=== PATIENT | female | born 1975 | race Caucasian/White ===

== ENCOUNTER 2016-08-03 11:23 | Emergency (ER) | payer BC ==
[2016-08-03] MEDS ORDERED: IBUPROFEN 800 MG TABLET ONE (12:23)
[2016-08-03 12:35] LABS: BASO % 0.5 % (0.2-1.0); EOS # 0.1 (0.0-0.5); EOS % 1.1 % (0.9-2.9); HEMATOCRIT 37.6 % (37.0-47.0); HEMOGLOBIN 12.7 gm/l (12.0-16.0); IMM NEUT% 0.3 % (0-1); LYMPH % 30.4 % (15-45); MEAN CELL VOLUME 90.6 fl (81.0-99.0); MEAN CORPUSCULAR HEMOGLOBIN 30.6 pg (27.0-31.0); MEAN CORPUSCULAR HGB CONC 33.8 g/dl (33.0-37.0); MEAN PLATELET VOLUME 10.6 fl (7.4-10.4); MONO # 0.4 (0.0-0.8); MONO % 6.1 % (4-12); NEUT % 61.6 % (43-75); PLATELET COUNT 171 K/mm3 (130-400); RED CELL DISTRIBUTION WIDTH 11.7 % (11.5-14.5)
[2016-08-03 12:49] LABS: ALB/GLOB RATIO 1.6 (>1.0); ALBUMIN 4.2 gm/dL (3.5-5.7); MAGNESIUM 2.1 mg/dL (1.9-2.7)
--- NOTE | 2016-08-03 12:49 | RAD ---
RIGHT KNEE 4 VIEWS HISTORY: Right knee pain and swelling. Frontal, lateral, and bilateral oblique views of the right knee. COMPARISON: None. ALIGNMENT: Grossly unremarkable.. JOINT SPACES: Preserved. JOINT EFFUSION: None identified. CALCIFICATIONS: No abnormal calcifications noted. FRACTURE: No displaced acute fracture. IMPRESSION: No malalignment or displaced acute fracture..
== END 2016-08-03 13:32 | disposition home or self-care (01) ==
LOC: ED 11:23
DX: M79.661 Pain in right lower leg (principal)